=== PATIENT | female | born 1985 | race African-American/Black ===

== ENCOUNTER 2023-08-19 18:35 | Emergency (ER) | payer OTHER ==
[2023-08-19] MEDS ORDERED: Acetaminophen/oxyCODONE 325-5 MG Tab PO ONE (18:42)
== END 2023-08-19 19:41 | disposition home or self-care (01) ==
LOC: MW.ED 18:35
DX: S09.90XA Unspecified injury of head, initial encounter (principal); S49.92XA Unspecified injury of left shoulder and upper arm, initial encounter; M25.562 Pain in left knee; Z91.048 Other nonmedicinal substance allergy status; Y04.2XXA Assault by strike against or bumped into by another person, initial encounter
CPT/HCPCS: 70450; 72125; 73030; 73562; 99284; A9270; 99283